=== PATIENT | male | born 1985 | race Caucasian/White ===

== ENCOUNTER 2021-04-16 10:32 | Emergency (ER) | payer OTHER ==
[~2021-04-16 10:32] MED LIST: EXPECTORANT200 MG PO; FLONASE 0.05% N16 GM; MUCINEX DM ER1 EAC1 PO; NORFLEX 100 MG100 MG PO; PREDNISONE 50 M50 MG PO; SUDAFED 60 MG T60 MG PO; TORADOL 10 MG T10 MG PO; ZITHROMAX250 MG PO
== END 2021-04-16 12:28 | disposition home or self-care (01) ==
LOC: ER1 10:32
DX: S60.052A Contusion of left little finger without damage to nail, initial encounter (principal); W22.8XXA Striking against or struck by other objects, initial encounter; Y92.009 Unspecified place in unspecified non-institutional (private) residence as the place of occurrence of the external cause
CPT/HCPCS: 73130; 99283

== ENCOUNTER 2021-05-24 08:38 | Emergency (ER) | payer OTHER ==
[2021-05-24] MEDS ORDERED: MEDROL DOSEPAK 24 MG PO (12:11)
[2021-05-24] MEDS ORDERED: CYCLOBENZAPRINE10 MG PO (12:11)
== END 2021-05-24 12:21 | disposition home or self-care (01) ==
LOC: ER1 08:38
DX: M51.16 Intervertebral disc disorders with radiculopathy, lumbar region (principal); Z88.5 Allergy status to narcotic agent
CPT/HCPCS: 72131; 96372; 99283; J1100; J1885

== ENCOUNTER 2021-12-05 07:11 | Emergency (ER) | payer OTHER ==
[~2021-12-05 07:11] MED LIST changes: +CYCLOBENZAPRINE10 MG PO; +MEDROL DOSEPAK 24 MG PO
[2021-12-05] MEDS ORDERED: AMOX TR-K CLV1 EAC4 PO (09:10)
== END 2021-12-05 09:29 | disposition home or self-care (01) ==
LOC: ER1 07:11
DX: J02.9 Acute pharyngitis, unspecified (principal); F17.200 Nicotine dependence, unspecified, uncomplicated
CPT/HCPCS: 87081; 87880; 99283